=== PATIENT | female | born 1995 | race Two or more races ===

== ENCOUNTER 2024-08-13 20:52 | Inpatient (IN) | payer BC, OTHER, SELFPAY ==
[2024-08-13 20:52] VITALS: BMI 44.0
[2024-08-13 21:02] VITALS: BP 112/76; PULSE 91; RESP 18; TEMP 36.8
[2024-08-13 21:20] LABS: Basophils % (Auto) 0 % (0-2.5); Eosinophils % (Auto) 1 % (0-10); Hematocrit 34.8 % (36.0-46.0); Hemoglobin 12.4 g/dL (12.0-16.0); Immature Granulocytes % (Auto) 1 % (0-0); Immature Granulocytes Auto 0.05 Thou/mm3 (0.00-0.00); Lymphocytes # (Auto) 1.8 Thou/mm3 (1.0-4.8); Lymphocytes % (Auto) 23 % (10-50); Mean Corpuscular HGB Conc 35.6 g/dl (31.0-37.0); Mean Corpuscular Hemoglobin 30.5 pg (25.0-35.0); Mean Corpuscular Volume 86 fL (80-100); Monocytes # (Auto) 0.7 Thou/mm3 (0.0-0.8); Monocytes % (Auto) 8 % (0-12); Neutrophils # (Auto) 5.5 Thou/mm3 (1.8-7.7); Neutrophils % (Auto) 68 % (37-80); Nucleated Red Blood Cell % 0 /100 WBC (0); Platelet Count 256 Thou/mm3 (140-440); RDW Standard Deviation 40.7 fL (36.4-46.3); Red Blood Count 4.06 Miln/mm3 (4.00-5.20); White Blood Count 8.1 Thou/mm3 (3.6-11.0)
--- NOTE | 2024-08-13 21:30 | XR_ITS ---
Examination: Complete OB ultrasound greater than 14 weeks Date and time of exam: August 13, 2024 2139 hours Indications: Labor induction, unknown presentation Findings: Viable intrauterine single fetus with single amniotic sac presentation cephalic Cardiac motion 137 BPM Placenta anterior grade 3 Umbilical cord insertion 3 vessel seen Amniotic fluid index 4.7 cm Cervix 4.4 cm Ovaries obscured by bowel gas. Composite estimated gestational age based on BPD, head circumference, abdominal circumference, femur length is 20 weeks 1 day Estimated weight 3960.8 g. Survey of intracranial anatomy, spinal anatomy, abdominal anatomy, four-chamber heart performed with no abnormalities identified. Impression: Viable intrauterine gestation cephalic presentation.
[2024-08-13 21:55] LABS: Syphilis Nonreactive (Nonreactive)
[2024-08-13] MEDS: DINOPROSTONE 10 MG VAG.SUPP VAGINAL (23:35)
[2024-08-13 23:38] VITALS: BP 99/67; PULSE 79; RESP 18; TEMP 36.7
[2024-08-13 23:39] VITALS: PULSE 75; O2SAT 99
[2024-08-14] VITALS (181 sets, daily range): BP systolic 90–192; BP diastolic 52–107; PULSE 70–120; RESP 16–20; TEMP 36.6–37; O2SAT 85–100
--- NOTE | 2024-08-14 00:17 | PD.LDHP ---
Documentation for date of: 08/13/24 OB Labor/Induct. HPI History of Present Illness Comments: H and P dictated on the STAT line #9 in [employer] # [id number] Meds Home Medications and Allergies Home Medications ?Medication ?Instructions ?Recorded ?Confirmed ?Type vit no.95-ferrous 1 tab PO QDAY 08/13/24 08/13/24 History fumarate 28 mg-folic acid 800 mcg tablet () Allergies Allergy/AdvReac Type Severity Reaction Status Date / Time No Known Allergies Allergy Verified 08/13/24 21:31 OB Exam Physical Exam Vital signs: Temp Pulse Resp BP Pulse Ox 98.0 F 79 18 99/67 99 08/13/24 23:38 08/13/24 23:38 08/13/24 23:38 08/13/24 23:38 08/13/24 23:39 OB Results Labs 08/13/24 21:04 Labs: Short CBC 08/13/24 Range/Units 21:04 WBC 8.1 (3.6-11.0) Thou/mm3 Hgb 12.4 (12.0-16.0) g/dL Hct 34.8 L (36.0-46.0) % Plt Count 256 (140-440) Thou/mm3
[2024-08-14 00:55] LABS: Collection Type, Urine Clean Catch; RBC,Urine 0 /hpf (0-3)
[2024-08-14 01:11] LABS: Creatinine,Random Urine 26 mg/dL (30-125); Protein Total, Random Urine < 6 mg/dL (1-14)
[2024-08-14 01:12] LABS: Bilirubin,Urine Negative (Negative); Blood,Urine Negative (Negative); Clarity,Urine Clear (Clear/Hazy); Color,Urine Colorless (Lt Yel-Yel); Glucose, Urine Negative (Negative); Ketones,Urine Negative (Negative); Leukocyte Esterase,Urine Negative (Negative); Nitrite,Urine Negative (Negative); PH,Urine 6.5 (5.0-7.0); Protein,Urine Negative (Neg - Trace); Specific Gravity,Urine 1.007 (1.001-1.035); Squamous Epithelial Cell,Urine 1 /hpf (0-5); Urobilinogen,Urine Negative mg/dL (0.0-1.0); WBC,Urine < 1 /hpf (0-5)
[2024-08-14 01:43] LABS: INR 0.9 (0.9-1.3); Partial Thromboplastin Time 25.3 Seconds (22.0-36.0); Prothrombin Time 10.4 Seconds (9.0-12.2)
[2024-08-14 01:59] LABS: Alanine Aminotransferase < 7 U/L (10-49); Albumin, Serum 3.7 gm/dL (3.5-5.0); Albumin/Globulin Ratio 1.6 (1.2-2.2); Alkaline Phosphatase 131 U/L (46-116); Anion Gap 7 (7-16); Aspartate Amino Transferase 13 U/L (0-34); BUN/Creatinine Ratio 8 Ratio (12-20); Bilirubin,Total 0.3 mg/dL (0.3-1.2); Blood Urea Nitrogen < 5 mg/dL (9-23); Calcium 9.2 mg/dL (8.3-10.6); Calcium (Corrected) 9.4 mg/dL (8.5-10.1); Carbon Dioxide 23.6 mMol/L (20.0-31.0); Chloride 109 mMol/L (98-107); Creatinine (Component) 0.6 mg/dL (0.6-1.3); Estimated Creatinine Clearance 168.7 mL/min (>60); Globulin 2.3 gm/dL (2.3-3.5); Glucose 104 mg/dL (74-106); Osmolality,Calculated 276 (275-295); Potassium 3.8 mMol/L (3.4-5.1); Sodium 140 mMol/L (136-145); eGFR > 60 See Note
--- NOTE | 2024-08-14 08:29 | PD.LDPN ---
Documentation for date of: 08/14/24 OB Labor Progress Note Pain Control Pain control: tolerating well Comments: Patient is resting comfortably in bed. She has contractions that are mild about every 5 minutes. No loss of fluids no heavy vaginal bleeding good movement. Patient had a Cervidil placed at 2300. I took over her care but from Dr Alvarez at 7 AM. She is being induced at 41 weeks for postdates. Pelvic Exam station: -3 Amniotic membrane status: Intact Comments: Patient was last examined with placement of Cervidil at 2300 on 08/13/2024 Contractions Monitor mode: External Contraction intensity: Mild Status status: Category l Assessment and Plan Assessment: induction ongoing Plan OB labor note: continuous present management Comments: I will examine patient around noon remove the Cervidil and consider Cytotec versus Pitocin augmentation at that point. Patient does desire epidural later in labor.
[2024-08-14] MEDS: RINGERS LACTATED 1000 ML 1,000 ML 125 ML IV ×3 (08:33→16:24)
--- NOTE | 2024-08-14 08:33 | ESHP_ITS ---
RE: RUBY ROSARIO : 1995 DATE OF ADMISSION: 08/13/2024 HISTORY OF PRESENT ILLNESS: This is a 28-year-old 3, para 2-0-0-2 with a due date of 08/06/2024 with intrauterine at 41 weeks and 0 days who admits for postdate's induction. The patient's care was uncomplicated. She reports normal movements. She denies any leaking or bleeding. She reports occasional contractions. US shows EFW 3961g. GABRIEL 4.7. ALLERGIES: NO KNOWN DRUG ALLERGIES. MEDICATIONS: 1. multivitamin 1 p.o. daily. 2. Loratadine 10 mg 1 p.o. daily. PAST MEDICAL HISTORY: Seasonal allergies, gallstones, Rh-negative, BMI 41. SOCIAL HISTORY: She denies any alcohol, drug use or smoking. FAMILY HISTORY: Denies. OBSTETRIC HISTORY: In 2019, 40 week normal vaginal delivery, 9 pound 8 ounce male, no complications; in 2021, 40 week, normal vaginal delivery, 8 pound 9 ounce male, no complications. PAST SURGICAL HISTORY: Laparoscopic cholecystectomy. REVIEW OF SYSTEMS: She denies any chest pain, palpitations, cough, fever, shortness of breath, or lower extremity pain. She denies any headache, change in vision, or right upper quadrant pain. PHYSICAL EXAMINATION: VITAL SIGNS: Blood pressure is 123/68, heart rate 88, respirations 18, temperature 98.6, weight 249 pounds. HEENT: Oropharynx and sclerae are clear. LUNGS: Clear to auscultation bilaterally. HEART: Regular rate and rhythm. ABDOMEN: Gravid, term size consistent with estimated weight 8-1/2 pounds. PELVIC: See RN notes. EXTREMITIES: Nontender. SKIN: No gross rashes or lesions. NEUROLOGIC: No focal deficit. ASSESSMENT AND PLAN: Intrauterine at 41 weeks and 0 days on 08/13/2024, induction of labor post dates, anticipate spontaneous vaginal delivery. Informed consent was obtained. The patient was made aware of the risks, complications, alternatives, and benefits of operative vaginal delivery and delivery and agrees with these modes of delivery if indicated. DT: 10:41:49 TT: 11:32:00 Ref: [id number] - TID: [id number] [facility]
[2024-08-14] MEDS: OXYTOCIN in NS 30 units 30 UNIT/500 ML BAG IV (12:27)
--- NOTE | 2024-08-14 20:07 | PD.LDPN ---
Documentation for date of: 08/14/24 OB Labor Progress Note Pain Control Pain control: tolerating well and epidural Pelvic Exam Dilation (cm): 5 Effacement (%): 80 station: -2 Amniotic membrane status: Intact Comments: AROMED, clear fluid Contractions Monitor mode: External Contraction intensity: Moderate Status status: Category l Assessment and Plan Assessment: active labor Plan OB labor note: continuous present management
[2024-08-14] MEDS: OXYTOCIN in NS 20 units 20 UNIT/1,000 ML BAG 125 UNIT IV (20:30)
--- NOTE | 2024-08-14 20:48 | OBDSUM_ITS ---
Data ([place]) Data Hx Section: No Maternal Blood Type: O Pos Rubella Titre: Positive RPR: Non-reactive Labs: Negative: RPR, Hepatitis B, HIV, Chlamydia, Gonorrhea and Group Beta Strep : 3 Para: 2 Term: 2 : 0 Livin : 0 Delivery Data ([place]) Labor Data Stimulated/Augmented: Yes Induction: Yes Method: Cervidil (and AROM) ROM Date: 08/14/24 ROM Time: 18:03 Rupture Type: AROM Amniotic Fluid: Clear Delivery Data EDC: 08/06/24 EDC calculated by:: LMP/early US confirmation Labor Onset Stage 1 Date: 08/14/24 Labor Onset Stage 1 Time: 16:10 Labor Onset Stage 2 Date: 08/14/24 Labor Onset Stage 2 Time: 20:25 Delivery Date: 08/14/24 Delivery Time: 20:34 Gestational age (weeks): 41 Gestational age (days): 1 Placenta Delivery Date: 08/14/24 Placenta Delivery Time: 20:40 Length stage 2 (minutes): 4 Length stage 3 (minutes): 5 Delivered by: Jessi Young Delivery nurse: Koki Polanco Procurement Director at delivery: No Support person(s) at delivery: SOB, patients sister Other staff at delivery: Nursery Nurse Other staff at delivery: Nursery Nurse Other staff at delivery: 2nd Nurse Other staff at delivery: Saniya Pascual Other staff at delivery: Ilda Lopez Other staff at delivery: Enma Reynolds RN Delivery Method Delivery: Vaginal Delivery Type: Spontaneous Presentation: Vertex Position: OA Anesthesia Type Primary Anesthesia: Epidural Secondary Anesthesia: None Placenta Placenta Delivery: Spontaneous Placenta Cultures Obtained: No Placenta Sent for Examination: No Cord Sample: Cord Blood Obtained Episiotomy Episiotomy: None EBL Estimated blood loss (ml): 50 Umbilical Cord Umbilical Vessels: 3 Nuchal Cord: None Body Cord: None Additional Procedures The patient progressed to complete and +2 station. She felt pressure. She had an epidural in place. She then pushed through 1 contraction delivering a liveborn female. Findings : liveborn female in the ALFREDA presentation with no nuchal cord and no meconium. Apgars were 8 and 9. Weight was 7 pounds 14 ounces. The patient delivered over an intact perineum. The placenta was co mplete spontaneous grossly normal and delivered approximately 5 minutes after the baby. Complications were none. Condition both mom and infant were in stable condition in the delivery room. EBL was 50 cc. Complications Complications: None Data ([place]) [place] Data order: 3 Infant Gender: Female Infant Weight Grams: 3575 1 Minute Total: 9 5 Minute Total: 10
[2024-08-14] MEDS: IBUPROFEN TAB 400 MG TABLET 800 MG PO (22:34)
[2024-08-15] VITALS (7 sets, daily range): BP systolic 106–128; BP diastolic 61–79; PULSE 69–90; RESP 16–19; TEMP 36.4–36.7; O2SAT 97–99
[2024-08-15 02:19] LABS: Basophils % (Auto) 0 % (0-2.5); Eosinophils % (Auto) 0 % (0-10); Hematocrit 32.8 % (36.0-46.0); Hemoglobin 11.7 g/dL (12.0-16.0); Immature Granulocytes % (Auto) 0 % (0-0); Immature Granulocytes Auto 0.05 Thou/mm3 (0.00-0.00); Lymphocytes # (Auto) 1.9 Thou/mm3 (1.0-4.8); Lymphocytes % (Auto) 16 % (10-50); Mean Corpuscular HGB Conc 35.7 g/dl (31.0-37.0); Mean Corpuscular Hemoglobin 30.8 pg (25.0-35.0); Mean Corpuscular Volume 86 fL (80-100); Monocytes # (Auto) 0.9 Thou/mm3 (0.0-0.8); Monocytes % (Auto) 8 % (0-12); Neutrophils # (Auto) 8.7 Thou/mm3 (1.8-7.7); Neutrophils % (Auto) 75 % (37-80); Nucleated Red Blood Cell % 0 /100 WBC (0); Platelet Count 228 Thou/mm3 (140-440); RDW Standard Deviation 40.7 fL (36.4-46.3); White Blood Count 11.6 Thou/mm3 (3.6-11.0)
[2024-08-15] MEDS: IBUPROFEN TAB 400 MG TABLET 800 MG PO (06:31)
[2024-08-15] MEDS: PRENATAL VITAMIN/FE FUM/FA TABLET 1 TAB PO (08:29)
[2024-08-15] MEDS: ACETAMINOPHEN 325 MG TABLET 650 MG PO (08:29)
--- NOTE | 2024-08-15 09:22 | PD.LDPPPRG ---
Subjective Subjective Interval history: Delivery type: Patient doing well this morning. No acute complaints. Ambulating, tolerating p.o. and voiding without difficulty. HTN/Pre-Eclampsia screen: No chest pain, shortness of breath, headache, visual changes, epigastric or right upper quadrant pain. Breast-feeding, lochia diminishing. Bowel: Flatus+/ BM+ Exam Vital Signs Temp Pulse Resp BP Pulse Ox O2 Del Method 97.5 F 77 16 128/79 98 Room Air 08/15/24 07:32 08/15/24 07:32 08/15/24 07:32 08/15/24 07:32 08/15/24 07:32 08/15/24 07:32 Constitutional Constitutional: no acute distress Routine HEENT Exam Head: Present normocephalic and atraumatic Eye: Present EOMI and PERRL ENT: Present mucous membranes moist Routine Neck Exam Neck: Present supple and trachea midline Routine Respiratory Exam Respiratory: Present chest non-tender, lungs clear, normal breath sounds and no resp distress Routine Cardiovascular Exam Cardiovascular: Present RRR Routine Abdominal Exam Abdominal: Present soft and normoactive bowel sounds Routine Extremities Exam Extremities: Present full ROM Routine Skin Exam Skin: Present intact, dry and warm Routine Neurological Exam Neurological: Present alert, oriented X3 and CN II-XII intact Routine Psychiatric Exam Psychiatric: Present normal affect and normal thought process Objective Labs 08/15/24 01:03 08/14/24 00:42 Labs: Laboratory Results - last 24 hr 08/15/24 01:03 WBC 11.6 H D RBC 3.80 L Hgb 11.7 L Hct 32.8 L MCV 86 MCH 30.8 MCHC 35.7 RDW Std Deviation 40.7 Plt Count 228 Neut % (Auto) 75 Lymph % (Auto) 16 Cochran % (Auto) 8 Eos % (Auto) 0 Baso % (Auto) 0 Neut # (Auto) 8.7 H Lymph # (Auto) 1.9 Cochran # (Auto) 0.9 H Eos # (Auto) 0.0 Baso # (Auto) 0.0 Immature Gran # (Auto) 0.05 H Absolute Nucleated RBC 0.00 Immature Gran % 0 Nucleated RBC % 0 Rho(D) IG Studies Ready Maternal Bleed Negative Assessment & Plan Problem List (1) Rh negative, delivered, current hospitalization: Status: Acute (2) Encounter for care of lactating mother: Status: Acute (3) care following vaginal delivery: Status: Acute (4) Normal spontaneous vaginal delivery: Status: Acute Assessment and plan: 1. Continue routine /post-op care 2. Labs reviewed, cbc appropriate 3. Remove dressing/[place] 4. Encourage to ambulate, shower 5. Encourage PO intake, breast feeding Time Spent With Patient Time: Total time spent is greater than 50% in coordination of care (as documented) at patient's floor/unit and/or counseling patient:
--- NOTE | 2024-08-15 10:15 | CHAP ---
Visited with patient and spouse and gave encouragement.
--- NOTE | 2024-08-15 17:28 | PD.LDDS ---
DS: Providers Provider Date of admission: 08/13/24 20:52 Primary care physician: Erik Rubi MD Admitting Provider: Charles Alvarez MD Attending Provider on Admission: Elias Feldman MD Consults: 08/14/24 20:46 Referral Routine Comment: Attending Provider on DC: Elias Feldman MD Discharging Provider: Elias Feldman MD DS: Diagnosis Discharge Diagnosis (1) Rh negative, delivered, current hospitalization: Status: Acute (2) Encounter for care of lactating mother: Status: Acute (3) care following vaginal delivery: Status: Acute (4) Normal spontaneous vaginal delivery: Status: Acute Problem List Completed Was Problem List Reviewed/Reconciled?: Yes Summary/Hosp Course Time Spent with Patient Time attestation: Total time spent providing and/or coordinating discharge services: Exam Vital Signs Temp Pulse Resp BP Pulse Ox O2 Del Method 97.9 F 88 19 118/76 98 Room Air 08/15/24 16:00 08/15/24 16:00 08/15/24 16:00 08/15/24 16:00 08/15/24 16:00 08/15/24 16:00 Discharge Plan Plan Patient Disposition: HOME (Self Care) Patient condition on transfer: Stable Prescriptions/Referrals Prescriptions/Med Rec: New ibuprofen 400 mg Tablet 800 mg PO Q8H MDD 4 PRN (Reason: See Comments) 10 Days Qty: 40 0RF docusate sodium [Stool Softener] 100 mg capsule 100 mg PO QDAY 30 Days Qty: 30 0RF Continued PNV cmb#95-ferrous fumarate-FA [] 28 mg iron- 800 mcg tablet 1 tab PO QDAY Discontinued ibuprofen 600 mg tablet 600 mg PO Q8H PRN (Reason: pain (scale score 4-6)) Qty: 15 0RF Referrals: Erik Rubi MD [Primary Care Provider] - Charles Alvarez MD [Physician] - Patient/Caregiver Discharge Instructions Meds to Beds: Yes Discharge Activity: activity as tolerated Education Materials: After Delivery Concerns, Breast Care After , Nutrition While , : Caring for Yourself, Feel Healthy After Print Language: Kinyarwanda Stand Alone Forms: Mya Award Info., Patient Portal Info Letter Discharge Order Discharge Orders: Discharge (Routine); Ordered 08/15/24 Ordered By: Elias Feldman Planned Discharge Date 08/15/24
== END 2024-08-15 21:10 | disposition home or self-care (01) | DRG 807 ==
LOC: S4SX 08-14 08:28 → S4NX 08-14 22:51
PROVIDERS: Obstetrics & Gynecology; Admitting Provider Specialist; PCP Internal Medicine; Visit Provider Obstetrics & Gynecology
DX: O48.0 Post-term pregnancy (principal); Z37.0 Single live birth; Z3A.41 41 weeks gestation of pregnancy; O26.893 Other specified pregnancy related conditions, third trimester; Z67.41 Type O blood, Rh negative
CPT/HCPCS: 36415; 59409; 76805; 80053; 81001; 82570; 84156; 85025; 85461; 85610; 85730; 86780; 86850; 86900; 86901; 94762; J2590; J2790; J2795; J3010; J7120; A9270